=== PATIENT | male | born 1975 ===

== ENCOUNTER 2018-03-19 17:37 | Emergency (ER) | payer OTHER ==
[~2018-03-19] VITALS: Ht 185.4 cm; Wt 88.5 kg
[2018-03-19] MEDS ORDERED: CLONAZEPAM1 MG (17:54)
== END 2018-03-19 19:03 | disposition home or self-care (01) ==
LOC: ER 17:37
DX: S69.82XA Other specified injuries of left wrist, hand and finger(s), initial encounter (principal); X58.XXXA Exposure to other specified factors, initial encounter; Y93.89 Activity, other specified; Y92.89 Other specified places as the place of occurrence of the external cause; Y99.8 Other external cause status